=== PATIENT | female | born 1990 | race American Indian/Alaskan Native ===

== ENCOUNTER 2018-04-24 11:35 | Emergency (ER) | payer OTHER ==
--- NOTE | 2018-04-24 11:53 | Emergency Department Report ---
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 Due to findings the following was ordered: ED Disposition for MSE Condition: Stable
--- NOTE | 2018-04-24 12:53 | Emergency Department Report ---
ED Fall HPI - General Chief Complaint: Fall Stated Complaint: NECK/BODY PAIN DUE TO FALL Time Seen by Provider: 04/24/18 11:50 Source: patient Mode of arrival: Ambulatory - History of Present Illness MD Complaint: fall -: Last night Fall From: standing Fall Witnessed: yes, by family Place Fall Occurred: home Loss of Consciousness: none Prolonged Down Time?: no Symptoms Prior to Fall: none Location: head, buttocks Location - Extremities: Left: Forearm Severity: mild Context: tripped/slipped Associated Symptoms: denies - Related Data Allergies Allergy/AdvReac Type Severity Reaction Status Date / Time No Known Allergies Allergy Unverified 04/24/18 11:41 ED Review of Systems ROS: Stated complaint: NECK/BODY PAIN DUE TO FALL Other details as noted in HPI Comment: All other systems reviewed and negative Eyes: denies: eye pain Respiratory: denies: cough, orthopnea Cardiovascular: denies: chest pain, palpitations Gastrointestinal: denies: abdominal pain, nausea, vomiting, diarrhea, constipation, hematemesis ED Past Medical Hx - Social History Smoking Status: Never Smoker Substance Use Type: Alcohol ED Physical Exam - General Limitations: No Limitations General appearance: alert, in no apparent distress - Head Head exam: Present: atraumatic, normocephalic, normal inspection - Eye Eye exam: Present: normal appearance, PERRL - ENT ENT exam: Present: normal exam, normal orophraynx, mucous membranes moist - Neck Neck exam: Present: normal inspection, full ROM. Absent: tenderness, meningismus, lymphadenopathy, thyromegaly - Respiratory Respiratory exam: Present: normal lung sounds bilaterally. Absent: respiratory distress, chest wall tenderness - Cardiovascular Cardiovascular Exam: Present: regular rate, normal rhythm, normal heart sounds - GI/Abdominal GI/Abdominal exam: Present: soft, normal bowel sounds. Absent: distended, tenderness, guarding, rebound, rigid - Extremities Exam Extremities exam: Present: normal inspection, full ROM, normal capillary refill. Absent: tenderness, calf tenderness - Back Exam Back exam: Present: normal inspection, full ROM. Absent: CVA tenderness (R), CVA tenderness (L), muscle spasm, paraspinal tenderness, vertebral tenderness - Neurological Exam Neurological exam: Present: alert, oriented X3, CN II-XII intact, normal gait, reflexes normal - Skin Skin exam: Present: warm, intact, normal color ED Course Vital Signs 04/24/18 11:50 Temperature 98.5 F Pulse Rate 73 Respiratory 18 Rate Blood Pressure 123/81 O2 Sat by Pulse 100 Oximetry Critical care attestation.: If time is entered above; I have spent that time in minutes in the direct care of this critically ill patient, excluding procedure time. ED Disposition Clinical Impression: Fall, Contusion Disposition: DC-01 TO HOME OR SELFCARE Is pt being admited?: No Condition: Stable Instructions: Contusion in Adults (ED), Fall Prevention (ED) Referrals: [facility] [Other] - 3-5 Days Forms: Work/School Release Form(ED)
== END 2018-04-24 13:04 | disposition home or self-care (01) ==
LOC: ED 11:35
CPT/HCPCS: 99282